=== PATIENT | male | born 1975 | race Caucasian/White ===

== ENCOUNTER 2016-03-24 14:28 | Emergency (ER) | payer OTHER ==
[2016-03-24 14:47] VITALS: BP 120/72
== END 2016-03-25 01:23 | disposition left against medical advice (07) ==
LOC: ED 14:28
DX: R05 Cough (principal); R09.89 Other specified symptoms and signs involving the circulatory and respiratory systems; Z53.21 Procedure and treatment not carried out due to patient leaving prior to being seen by health care provider

== ENCOUNTER 2016-07-22 09:51 | Day surgery (SDC) | payer OTHER ==
--- NOTE | 2016-07-22 10:37 | Anesthesia Day of Surgery ---
Anesthesia Day of Surgery - Day of Surgery Patient Examined: Yes Patient H&P Reviewed: Yes Patient is NPO: Yes
--- NOTE | 2016-07-22 10:37 | Anesthesia Consultation ---
Anesthesia Consult and Med Hx Date of service: 07/22/16 - Airway Anesthetic Teeth Evaluation: Good ROM Head & Neck: Adequate Mental/Hyoid Distance: Adequate Mallampati Class: Class II Intubation Access Assessment: Probably Good - Pulmonary Exam CTA: Yes - Cardiac Exam Cardiac Exam: RRR - Pre-Operative Health Status ASA Pre-Surgery Classification: ASA1 Proposed Anesthetic Plan: MAC - Additional Comments Anesthesia Medical History Comments: Gets hypoglycemic but never passed out. No meds.
[2016-07-22] MEDS ORDERED: DIPRIVAN 10 MG/ML IV ONE ×6 (10:40→11:30)
[2016-07-22] MEDS ORDERED: NACL 0.9% 1000 ML 1,000 ML IV SCH (11:00)
[2016-07-22] MEDS ORDERED: WATER FOR IRRIG STERILE IR ONE (11:38)
--- NOTE | 2016-07-22 12:27 | Post Anesthesia Evaluation ---
- Post Anesthesia Evaluation Patient Participated: Yes Airway Patent: Yes Stable Respiratory Function: Yes Nausea/Vomiting: No Temp > 96.8F: Yes Pain Manageable: Yes Adequeate Hydration: Yes Anesthesia Complications: No Block Receding Appropriately: Not Applicable Patient on Ventilator: No
--- NOTE | 2016-07-22 12:37 | Discharge Summary ---
Short Stay Discharge Plan Activity: advance as tolerated Weight Bearing Status: Weight Bear as Tolerated Diet: regular Additional Instructions: Post Sedation D/C Instructions When you return home you may resume your regular diet unless otherwise directed. -Go directly home from the hospital and rest quietly. You may resume normal activities tomorrow. -Do NOT drive, return to work, operate any machinery or make any important personal or business decisions today. -Do NOT drink any alcohol or take nerve or sleeping drugs. They add to the effects of the medicine still present in your body. Follow up with Dr. Stacy in 2 weeks to obtain pathology results. Follow up with: PRIMARY CAREMD [Primary Care Provider] - 7 Days
--- NOTE | 2016-07-22 12:37 | Operative Report ---
Operative Report Operative Report: Date of procedure: 07/22/2016 Procedure: Colonoscopy hot biopsy polypectomy and ablation. Attending physician: Papo Stacy MD Scientist/Engineer: Papo Stacy MD Indication: Patient is a 40-year-old male who presents for colonoscopy. He has a strong family history of colorectal cancer. His father had colon cancer at age 50. This colonoscopy is done to evaluate patient so that treatment may be directed based on findings. Consent: Informed consent was obtained after advising the patient and family regarding nature of this procedure, its indications, potential benefits as well as possible complications including but not limited to bleeding perforation and adverse reaction to medication, infection as well as other cardiopulmonary complications. An informed written and verbal consent was then obtained after due opportunity was provided for questions and answers. Monitoring: Patient was monitored continuously with pulse oximetry and electrocardiographic recordings as well as blood pressure recordings. Vital signs remained stable throughout this procedure with no untoward events. Preoperative assessment: Patient was assessed immediately prior to this procedure for capacity to tolerate monitored anesthesia care and moderate sedation as well as general anesthesia. Patient's ASA classification is 1, Mallampati class is 2, Hyomental distance is 3. Instrument: Askuityn videocolonoscope Medications: Propofol, given intravenously in divided doses. For details please refer to anesthesia records. Description of procedure: Patient was placed in the left lateral decubitus position after achieving sedation, a digital rectal examination was performed following which the colonoscope was introduced into the anal verge and advanced to the cecum which was identified by the cecal valve, the appendiceal orifice, as well as by the cecal strap and direct transillumination. The colonoscope was subsequently withdrawn with careful inspection of all mucosal surfaces. Patient tolerated this procedure well and was subsequently taken to the recovery room. The following findings were noted. Findings: The preparation was excellent. Patient had a diminutive flat polyp in the descending colon which was ablated. In the rectum, patient had a 6-8 mm sessile polyp which was removed hot biopsy polypectomy and the base ablated. Patient had a few scattered diverticula in the sigmoid colon. On retroflexed view at the anal verge, patient had internal hemorrhoids. Impression: Diminutive descending colon polyp status post ablation. Rectal polyp status post hot biopsy polypectomy and ablation. Mild diverticulosis. Plan: Follow pathology report. High-fiber diet. Repeat colonoscopy in 5 years.
[2016-07-22 12:44] VITALS: BP 108/59
== END 2016-07-22 09:52 | disposition home or self-care (01) ==
LOC: GIO 09:51
PROVIDERS: ATTEND Internal Medicine Gastroenterology
DX: Z12.11 Encounter for screening for malignant neoplasm of colon (principal); K63.5 Polyp of colon; K62.1 Rectal polyp; K57.30 Diverticulosis of large intestine without perforation or abscess without bleeding; K64.8 Other hemorrhoids; Z98.890 Other specified postprocedural states; Z80.0 Family history of malignant neoplasm of digestive organs
CPT/HCPCS: 45384; 45388; 88305; J2704; J7030